=== PATIENT | female | born 2000 | race Caucasian/White ===

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

== ENCOUNTER 2019-01-09 20:47 | Emergency (ER) | payer OTHER ==
[~2019-01-09] VITALS: Ht 172.7 cm; Wt 61.2 kg
[2019-01-09 21:41] LABS: CLARITY,URINE SL CLOUDY; COLOR,URINE DARK YELLOW; GLUCOSE, URINE (UA) NEGATIVE (NEGATIVE); KETONES,URINE TRACE (NEGATIVE); NITRITE,URINE NEGATIVE (NEGATIVE); PROTEIN,URINE TRACE (NEGATIVE)
[2019-01-09 21:42] LABS: BACTERIA,URINE NEGATIVE /HPF; LEUKOCYTE ESTERASE ,URINE NEGATIVE (NEGATIVE); RBC,URINE >100 /HPF; UROBILINOGEN,URINE 0.2 MG/DL (NORMAL)
[2019-01-09 22:10] LABS: BILIRUBIN,URINE 1+ (NEGATIVE)
--- NOTE | 2019-01-09 23:03 | ED GU-Female ---
General Chief Complaint: PHOTO RETOUCHER Stated Complaint: ABD PAIN, IRREGULAR PERIOD, CLOTTING, EXC BLEEDING Nursing Triage Note: PT AMBULATE TO - WITH C/O PAINFULL INTERMITENT VAGINAL BLEEDING STARTING TWO WEEKS AGO. PT STATES SHE HAS NOT SEEN AN OBG-YN. PT STATES SHE IS BLEEDING AND PASSING LOTS OF CLOTS. Source: patient History of Present Illness Date Seen by Provider: Jan 09, 2019 Time Seen by Provider: 23:03 Initial Comments 18-year-old female presenting with complaints of irregular and painful vaginal bleeding. She states that this is been going on for the last 2 weeks. She has been very active and practice and sports for the last 3-4 weeks with softball. She has not had difficulty with her periods like this before. She is here from [place] for school. Her primary doctor is back in [place]. She denies any fever or chills. She has not had unprotected sex. She is not taking any control. She denies having any irregular menstrual cycles in the past. She reports that usually her periods are usually very regular for her. She had talked with her mom and family and no family members have hx of irregular painful periods. Allergies and Home Medications Allergies Coded Allergies: amoxicillin (Verified Allergy, Severe, RASH, 07/26/18) Home Medications Norgestimate-Ethinyl Estradiol 1 Each Tablet, 1 EACH PO DAILY Prescribed by: KYLIE GELLER on 01/10/19 0034 Patient Home Medication List Home Medication List Reviewed: Yes Review of Systems Review of Systems Constitutional: No chills; dizziness (occasional); No fever EENTM: no symptoms reported Respiratory: no symptoms reported Cardiovascular: no symptoms reported Gastrointestinal: no symptoms reported Genitourinary: see HPI Musculoskeletal: no symptoms reported Skin: no symptoms reported Psychiatric/Neurological: No Symptoms Reported Past Hljudem-Myqixw-Jrrgwx Hx Patient Social History Alcohol Use: Denies Use Recreational Drug Use: No Smoking Status: Never a Smoker 2nd Hand Smoke Exposure: No Recent Foreign Travel: No Contact w/Someone Who Travel: No Recent Infectious Disease Expo: No Recent Hopitalizations: No Physical Abuse: No Sexual Abuse: No Mistreated: No Fear: No Immunizations Up To Date Tetanus Booster (TDap): Unknown Seasonal Allergies Seasonal Allergies: No Past Medical History Surgeries: No Respiratory: No Cardiac: No Neurological: No Female Reproductive Disorders: Denies Sexually Transmitted Disease: No Genitourinary: No Gastrointestinal: No Musculoskeletal: No Endocrine: No HEENT: No Cancer: No Psychosocial: No Integumentary: No Blood Disorders: No Physical Exam Vital Signs Vital Signs - First Documented 01/09/19 01/10/19 21:15 00:42 Temp 99.9 Pulse 107 Resp 18 B/P (MAP) 124/72 Pulse Ox 98 O2 Delivery Room Air Capillary Refill : Height, Weight, BMI Height: 5'8.00" Weight: 135lbs. oz. 61.028595ak; 14.06 BMI Method:Stated General Appearance: WD/WN, no apparent distress HEENT: PERRL/EOMI, normal ENT inspection, pharynx normal Neck: non-tender, full range of motion, supple, normal inspection Cardiovascular: normal peripheral pulses, regular rate, rhythm Respiratory: chest non-tender, lungs clear, normal breath sounds, no respiratory distress, no accessory muscle use Gastrointestinal: normal bowel sounds, non tender, soft, no pulsatile mass Back: normal inspection, no CVA tenderness, no vertebral tenderness Extremities: normal range of motion, non-tender, normal inspection, no pedal edema, no calf tenderness, normal capillary refill Neurologic/Psychiatric: alert, oriented x 3 Skin: normal color, warm/dry Procedures/Interventions Suture Size: 5-0 Progress/Results/Core Measures Suspected Sepsis SIRS Temperature:99.9 Pulse: Respiratory Rate: Laboratory Tests 01/09/19 23:28: White Blood Count 8.8 Blood Pressure / Mean: Laboratory Tests 01/09/19 23:28: Platelet Count 255 Results/Orders Lab Results Laboratory Tests Test 01/09/19 21:00 01/09/19 23:28 Range/Units Urine Color DARK YELLOW Urine Clarity SL CLOUDY Urine pH 6.0 5-9 Urine Specific [place] >=1.030 1.016-1.022 Urine Protein TRACE H NEGATIVE Urine Glucose (UA) NEGATIVE NEGATIVE Urine Ketones TRACE H NEGATIVE Urine Nitrite NEGATIVE NEGATIVE Urine Bilirubin 1+ H NEGATIVE Urine Urobilinogen 0.2 NORMAL MG/DL Urine Leukocyte Esterase NEGATIVE NEGATIVE Urine RBC (Auto) 3+ H NEGATIVE Urine RBC >100 H /HPF Urine WBC 2-5 /HPF Urine Squamous Epithelial Cells 5-10 /HPF Urine Crystals NONE /LPF Urine Bacteria NEGATIVE /HPF Urine Casts NONE /LPF Urine Mucus MODERATE H /LPF Urine Culture Indicated NO Urine Test NEGATIVE NEGATIVE White Blood Count 8.8 4.3-11.0 10^3/uL Red Blood Count 4.43 4.35-5.85 10^6/uL Hemoglobin 13.3 11.5-16.0 G/DL Hematocrit 39 35-52 % Mean Corpuscular Volume 89 80-99 FL Mean Corpuscular Hemoglobin 30 25-34 PG Mean Corpuscular Hemoglobin Concent 34 32-36 G/DL Red Cell Distribution Width 12.2 10.0-14.5 % Platelet Count 255 130-400 10^3/uL Mean Platelet Volume 10.9 H 7.4-10.4 FL Neutrophils (%) (Auto) 63 42-75 % Lymphocytes (%) (Auto) 24 12-44 % Monocytes (%) (Auto) 12 0-12 % Eosinophils (%) (Auto) 1 0-10 % Basophils (%) (Auto) 0 0-10 % Neutrophils # (Auto) 5.5 1.8-7.8 X 10^3 Lymphocytes # (Auto) 2.1 1.0-4.0 X 10^3 Monocytes # (Auto) 1.0 0.0-1.0 X 10^3 Eosinophils # (Auto) 0.0 0.0-0.3 10^3/uL Basophils # (Auto) 0.0 0.0-0.1 10^3/uL My Orders Orders - KYLIE GELLER MD Ua Culture If Indicated (01/09/19 21:11) Hcg,Qualitative Urine (01/09/19 21:11) Cbc With Automated Diff (01/09/19 23:21) Vital Signs/I&O 01/09/19 01/10/19 21:15 00:42 Temp 99.9 Pulse 107 97 Resp 18 16 B/P (MAP) 124/72 Pulse Ox 98 100 O2 Delivery Room Air Capillary Refill : Progress Note #1: Progress Note Urinalysis and urine test was obtained. The urine test was negative. The urinalysis showed blood but no infection. Since she reports a history of anemia Will obtain a CBC to evaluate her blood count. Progress Note #2: Progress Note CBC does not demonstrate any anemia or significant elevation of her white blood cell count. Counseled on results and advised to check back with Dr. Allen or gynecology about further testing as she may need hormone levels or further evaluation on why her periods are suddenly irregular and painful. This may be back to her hormone levels and the exercising and strenuous activity from sports but without additional testing its hard to say. Will initiate medication with the control pills to try and help stop the bleeding and regulate her cycle. Consults with Dr. Allen on treatment and he was in agreement with this. ECG Initial ECG Impression Date: Jan 10, 2019 Departure Impression Primary Impression: Irregular menstrual bleeding Disposition: HOME, SELF-CARE Condition: Stable Departure-Patient Inst. Decision time for Depature: 00:24 Referrals: NO,LOCAL PHYSICIAN (PCP) Primary Care Physician MARINE ALLEN DO Patient Instructions: IRREGULAR VAGINAL BLEEDING, Painful Periods Add. Discharge Instructions: Stay well hydrated and get plenty of rest Consider taking a multivitamin with iron to help your body replace any blood you are losing from heavy menstrual bleeding Check with clinic at [facility] or with [employer] to investigate your heavy painful irregular bleeding You could take the control pills to help with regulating your bleeding and getting it to slow down and stop All discharge instructions reviewed with patient and/or family. Voiced understanding. Scripts Norgestimate-Ethinyl Estradiol (Sprintec 28 Day Tablet) 1 Each Tablet 1 EACH PO DAILY for 28 Days, #28 TAB 0 Refills Prov: KYLIE GELLER MD 01/10/19 KYLIE GELLER MD Jan 09, 2019 23:03
[2019-01-09 23:36] LABS: BASOPHILS % (AUTO) 0 % (0-10); EOSINOPHILS % (AUTO) 1 % (0-10); HEMATOCRIT 39 % (35-52); HEMOGLOBIN 13.3 G/DL (11.5-16.0); LYMPHOCYTES # (AUTO) 2.1 X 10^3 (1.0-4.0); LYMPHOCYTES % (AUTO) 24 % (12-44); MEAN CORPUSCULAR HEMOGLOBIN 30 PG (25-34); MEAN CORPUSCULAR HGB CONC 34 G/DL (32-36); MEAN CORPUSCULAR VOLUME 89 FL (80-99); MEAN PLATELET VOLUME 10.9 FL (7.4-10.4); MONOCYTES % (AUTO) 12 % (0-12); NEUTROPHILS # (AUTO) 5.5 X 10^3 (1.8-7.8); NEUTROPHILS % (AUTO) 63 % (42-75); PLATELET COUNT 255 10^3/uL (130-400); RED CELL DISTRIBUTION WIDTH 12.2 % (10.0-14.5); WHITE BLOOD COUNT 8.8 10^3/uL (4.3-11.0)
[2019-01-10] MEDS ORDERED: NORG1TAB14 PO (00:34)
== END 2019-01-10 00:42 | disposition home or self-care (01) ==
LOC: EDUNIT# 20:47 → ER FS 20:50
DX: N93.9 Abnormal uterine and vaginal bleeding, unspecified (principal); Z88.1 Allergy status to other antibiotic agents
CPT/HCPCS: 36415; 81000; 84703; 85025

== ENCOUNTER 2019-04-18 09:45 | Outpatient (CLI) | payer OTHER ==
[~2019-04-18] VITALS: Ht 172 cm; Wt 63.6 kg
[~2019-04-18 09:45] MED LIST: NORG1TAB14 PO
[2019-04-22] MEDS ORDERED: HYDR-4226 PO (09:24)
[2019-04-22] MEDS ORDERED: IBUP-1773 PO (09:24)
== END 2019-04-18 09:54 ==
LOC: PREOP 09:45
PROVIDERS: ATTEND Obstetrics & Gynecology
DX: Z01.818 Encounter for other preprocedural examination (principal)

== ENCOUNTER 2020-07-20 14:44 | Emergency (ER) | payer OTHER ==
[~2020-07-20] VITALS: Ht 170.2 cm; Wt 59.0 kg
[~2020-07-20 14:44] MED LIST changes: +HYDR-4226 PO; +IBUP-1773 PO
[2020-07-20 15:07] VITALS: BP_SYST 130; BP_SYST 133; BP_SYST 139; BP_DIAS 69; BP_DIAS 70; BP_DIAS 74
[2020-07-20] MEDS ORDERED: KETOROLAC 30 MG/ML VIAL IVP STA (15:09)
[2020-07-20] MEDS ORDERED: NS IV 1000 ML 1,000 ML IV STA (15:09)
[2020-07-20] MEDS ORDERED: ONDANSETRON 4 MG/2 ML (SDV) Z0FRAN IVP STA (15:09)
[2020-07-20 15:14] LABS: HEMATOCRIT 41 % (35-52); HEMOGLOBIN 13.9 G/DL (11.5-16.0); MEAN CORPUSCULAR HEMOGLOBIN 30 PG (25-34); MEAN CORPUSCULAR HGB CONC 34 G/DL (32-36); MEAN CORPUSCULAR VOLUME 88 FL (80-99); NEUTROPHILS % (AUTO) 54 % (42-75); PLATELET COUNT 190 10^3/uL (130-400); WHITE BLOOD COUNT 4.4 10^3/uL (4.3-11.0)
[2020-07-20 15:15] LABS: BASOPHILS % (AUTO) 0 % (0-10); EOSINOPHILS % (AUTO) 1 % (0-10); LYMPHOCYTES % (AUTO) 27 % (12-44); MONOCYTES % (AUTO) 18 % (0-12)
[2020-07-20 15:16] LABS: EOSINOPHILS # (AUTO) 0.1 10^3/uL (0.0-0.3); LYMPHOCYTES # (AUTO) 1.2 X 10^3 (1.0-4.0); MONOCYTES # (AUTO) 0.8 X 10^3 (0.0-1.0); NEUTROPHILS # (AUTO) 2.3 X 10^3 (1.8-7.8)
--- NOTE | 2020-07-20 15:16 | ED GI ---
General Chief Complaint: Abdominal/GI Problems Stated Complaint: DIARRHEA; VOMITING; NAUSEA; LRQ PAIN Source of Information: Patient History of Present Illness Date Seen by Provider: Jul 20, 2020 Time Seen by Provider: 14:46 Initial Comments 20-year-old female presenting with over 5 days of nausea, vomiting, diarrhea. She states that she is having right lower quadrant abdominal pain. She reports having increased diarrhea multiple times a day. She has no fever or chills. She denies any burning or pain with urination. She has no ill contacts as far she knows. She last tried to eat or drink around noon and immediately came back up on her and she vomited. She feels mild lightheadedness and dizziness when she stands up. Allergies and Home Medications Allergies Coded Allergies: Penicillins (Verified Allergy, Mild, RASH, 04/18/19) Home Medications Dicyclomine HCl 10 Mg Capsule, 10 MG PO QID PRN for NAUSEA/VOMITING Prescribed by: KYLIE GELLER on 07/20/20 1627 Hydrocodone/Acetaminophen 1 Each Tablet, 1-2 TAB PO Q6H Prescribed by: STEVEN JACQUES on 04/22/19 0924 Ibuprofen 600 Mg Tablet, 600 MG PO Q6H Prescribed by: STEVEN JACQUES on 04/22/19 0924 Norgestimate-Ethinyl Estradiol 1 Each Tablet, 1 EACH PO DAILY Prescribed by: KYLIE GELLER on 01/10/19 0034 Ondansetron 4 Mg Tab.rapdis, 4 MG PO Q6H PRN for NAUSEA/VOMITING Prescribed by: KYLIE GELLER on 07/20/20 1627 Patient Home Medication List Home Medication List Reviewed: Yes Review of Systems Review of Systems Constitutional: No chills; dizziness (mild with standing); No fever EENTM: No Symptoms Reported Respiratory: No Symptoms Reported Cardiovascular: No Symptoms Reported Gastrointestinal: See HPI, Abdominal Pain (cramping, worse in RLQ), Diarrhea, Nausea, Vomiting Genitourinary: See HPI Musculoskeletal: no symptoms reported Skin: No rash Psychiatric/Neurological: No Symptoms Reported Endocrine: No Symptoms Reported Hematologic/Lymphatic: No Symptoms Reported Past Aeuoewn-Hfbyxu-Bpkmrt Hx Past Med/Social Hx: Reviewed Nursing Past Med/Soc Hx Patient Social History Alcohol Use: Denies Use Type Used: Smokeless Tobacco 2nd Hand Smoke Exposure: No Recent Hopitalizations: Yes (CPP JAN 2019) Immunizations Up To Date Tetanus Booster (TDap): Unknown PED Vaccines UTD: No Seasonal Allergies Seasonal Allergies: Yes Past Medical History Surgeries: No Respiratory: No Cardiac: No Neurological: No Female Reproductive Disorders: Menstrual Problems, Ovarian Cyst Sexually Transmitted Disease: No Genitourinary: No Gastrointestinal: No Musculoskeletal: No Endocrine: No HEENT: Yes (GLASSES/CONTACTS) Loss of Vision: Denies Hearing Impairment: Denies Cancer: No Psychosocial: No Integumentary: No Blood Disorders: Yes (ANEMIA) Adverse Reaction/Blood Tranf: No (N/A) Physical Exam Vital Signs Vital Signs - First Documented 07/20/20 14:46 Temp 37.3 Pulse 99 Resp 18 B/P (MAP) 125/79 (94) Pulse Ox 100 O2 Delivery Room Air Capillary Refill : Height/Weight/BMI Height: 5'8.00" Weight: 135lbs. oz. 61.462062ex; 21.49 BMI Method:Stated General Appearance: WD/WN, no apparent distress HEENT: PERRL/EOMI Neck: non-tender, full range of motion, supple, normal inspection Respiratory: chest non-tender, lungs clear, normal breath sounds, no respiratory distress, no accessory muscle use Cardiovascular: normal peripheral pulses, regular rate, rhythm Gastrointestinal: soft, no pulsatile mass, abnormal bowel sounds (hyperactive); No guarding, No rebound; tenderness (RLQ) Rectal: deferred Extremities: normal range of motion, non-tender, normal capillary refill Back: no CVA tenderness Neurologic/Psychiatric: stave planer tender II-XII nml as tested, alert, oriented x 3 Skin: normal color, warm/dry Images 1 - RLQ abdominal pain with palpation. No guarding or rebound Procedures/Interventions Suture Size: 5-0 Progress/Results/Core Measures Results/Orders Lab Results Laboratory Tests Test 07/20/20 14:52 07/20/20 15:02 Range/Units Urine Color YELLOW Urine Clarity CLEAR Urine pH 6.5 5-9 Urine Specific [place] 1.025 H 1.016-1.022 Urine Protein NEGATIVE NEGATIVE Urine Glucose (UA) NEGATIVE NEGATIVE Urine Ketones NEGATIVE NEGATIVE Urine Nitrite NEGATIVE NEGATIVE Urine Bilirubin NEGATIVE NEGATIVE Urine Urobilinogen 0.2 < = 1.0 MG/DL Urine Leukocyte Esterase NEGATIVE NEGATIVE Urine RBC (Auto) NEGATIVE NEGATIVE Urine RBC NONE /HPF Urine WBC 0-2 /HPF Urine Squamous Epithelial Cells 5-10 /HPF Urine Crystals PRESENT H /LPF Urine Amorphous Sediment FEW [place] URATES H /LPF Urine Bacteria FEW H /HPF Urine Casts NONE /LPF Urine Mucus LARGE H /LPF Urine Culture Indicated NO White Blood Count 4.4 4.3-11.0 10^3/uL Red Blood Count 4.62 4.35-5.85 10^6/uL Hemoglobin 13.9 11.5-16.0 G/DL Hematocrit 41 35-52 % Mean Corpuscular Volume 88 80-99 FL Mean Corpuscular Hemoglobin 30 25-34 PG Mean Corpuscular Hemoglobin Concent 34 32-36 G/DL Red Cell Distribution Width 12.7 10.0-14.5 % Platelet Count 190 130-400 10^3/uL Mean Platelet Volume 11.0 H 7.4-10.4 FL Neutrophils (%) (Auto) 54 42-75 % Lymphocytes (%) (Auto) 27 12-44 % Monocytes (%) (Auto) 18 H 0-12 % Eosinophils (%) (Auto) 1 0-10 % Basophils (%) (Auto) 0 0-10 % Neutrophils # (Auto) 2.3 1.8-7.8 X 10^3 Lymphocytes # (Auto) 1.2 1.0-4.0 X 10^3 Monocytes # (Auto) 0.8 0.0-1.0 X 10^3 Eosinophils # (Auto) 0.1 0.0-0.3 10^3/uL Basophils # (Auto) 0.0 0.0-0.1 10^3/uL Neutrophils % (Manual) 46 % Lymphocytes % (Manual) 19 % Monocytes % (Manual) 17 % Eosinophils % (Manual) 2 % Band Neutrophils 11 % Atypical Lymphocytes 5 % Blood Morphology Comment NORMAL Sodium Level 138 135-145 MMOL/L Potassium Level 3.9 3.6-5.0 MMOL/L Chloride Level 104 98-107 MMOL/L Carbon Dioxide Level 23 21-32 MMOL/L Anion Gap 11 5-14 MMOL/L Blood Urea Nitrogen 11 7-18 MG/DL Creatinine 0.91 0.60-1.30 MG/DL Estimat Glomerular Filtration Rate > 60 BUN/Creatinine Ratio 12 Glucose Level 97 70-105 MG/DL Calcium Level 8.9 8.5-10.1 MG/DL Corrected Calcium 8.5-10.1 MG/DL Total Bilirubin 0.4 0.1-1.0 MG/DL Aspartate Amino Transf (AST/SGOT) 23 5-34 U/L Alanine Aminotransferase (ALT/SGPT) 19 0-55 U/L Alkaline Phosphatase 75 40-136 U/L Total Protein 7.6 6.4-8.2 GM/DL Albumin 4.7 H 3.2-4.5 GM/DL Lipase 22 8-78 U/L My Orders Orders - KYLIE GELLER MD Comprehensive Metabolic Panel (07/20/20 14:52) Lipase (07/20/20:52) Ua Culture If Indicated (07/20/20:52) Ed Iv/Invasive Line Start (07/20/20:52) Cbc With Automated Diff (07/20/20:) Urine Bedside (07/20/20:52) Orthostatic Vital Signs (Adult (07/20/20 15:08) Ns Iv 1000 Ml (Sodium Chloride 0.9%) (07/20/20 15:09) Ondansetron Injection (Zofran Injectio (07/20/20 15:09) Ketorolac Injection (Toradol Injection) (07/20/20 15:09) Manual Differential (07/20/20 15:02) Ct Abd/Pelv W (Appendicitis) (07/20/20 15:08) Iohexol Injection (Omnipaque 350 Mg/Ml 1 (07/20/20 15:45) Received Contrast (Hold Metformin- Contr (07/20/20 15:45) Sodium Chloride Flush (Catheter Flush Sy (07/20/20 15:45) Ns (Ivpb) (Sodium Chloride 0.9% Ivpb Bag (07/20/20 15:45) Dicyclomine Injection (Bentyl Injection) (07/20/20 16:23) Prochlorperazine Injection (Compazine In (07/20/20 16:23) Pantoprazole Injection (Protonix Injecti (07/20/20 16:23) Medications Given in ED Current Medications Medications Dose Ordered Sig/Brittanie Route Start Time Stop Time Status Last Admin Dose Admin Iohexol 100 ml ONCE ONCE IV 07/20/20 15:45 07/20/20 15:46 DC 07/20/20 15:46 100 ML Sodium Chloride 10 ml NEEDED PRN IV 07/20/20 15:45 07/20/20 17:47 DC 07/20/20 15:46 10 ML Sodium Chloride 100 ml ONCE ONCE IV 07/20/20 15:45 07/20/20 15:46 DC 07/20/20 15:46 80 ML Vital Signs/I&O 07/20/20 07/20/20 07/20/20 14:46 15:07 17:00 Temp 37.3 Pulse 99 92 78 94 108 Resp 18 18 B/P (MAP) 125/79 (94) 130/74 (92) 139/69 133/70 (91) 139/69 (92) Pulse Ox 100 100 O2 Delivery Room Air Room Air Progress Progress Note #1: Progress Note Obtain orthostatic vital signs since she reports having nausea, vomiting, diarrhea for over 5 days. Give IV fluids for hydration, Toradol for pain, Zofran for nausea. Check urine test and UA. The orthostatic vital signs showed mild elevation of her heart rate as she was standing. Her blood pressure remained stable. She did report some mild dizziness and lightheadedness with standing. Bedside urine test was negative. Differential diagnosis would include gastroenteritis, abdominal cramping, ovarian cyst, colitis, diverticulitis, appendicitis, cholecystitis, UTI, kidney stone. Progress Note #2: Progress Note CBC and chemistry were negative for any acute significant normality. Her urinalysis had elevated specific gravity 1.025 with some crystals and mucus but no nitrites leukocyte esterase or signs of infection. The symptoms seem to be improved with treatment in the ED. Progress Note #3: Progress Note CT scan does not show any acute significant abnormality. The appendix is normal. We will treat patient symptomatically and see if she wants to do outpatient Covid swab. However the treatment would still remain the same of sy mptomatic treatment. Diagnostic Imaging Diagonstic Imaging: CT Plain Films/CT/US/NM/MRI: abdomen, pelvis Comments NAME: CHRISTOS BAUTISTA MED REC#: [id number] PT STATUS: REG ER : 2000 PHYSICIAN: KYLIE GELLER MD ADMIT DATE: 07/20/20/ER FS Draft Date of Exam:07/20/20 CT ABD/PELV W (APPENDICITIS) PROCEDURE: CT abdomen and pelvis with contrast, rule out appendicitis. TECHNIQUE: Multiple contiguous axial images were obtained through the abdomen and pelvis after the administration of intravenous contrast. All CT scans use one or more of the following dose optimizing techniques: automated exposure control, MA and/or KvP adjustment based on patient size and exam type or iterative reconstruction. INDICATION: Nausea and vomiting for 5 days. FINDINGS: The lung bases are clear. The liver and gallbladder are unremarkable. The pancreas and spleen are unremarkable. There is no adrenal mass. The kidneys are unremarkable. The aorta is nonaneurysmal. The appendix is visualized in the right lower quadrant and does not appear to be appreciably thick-walled. No periappendiceal inflammation is identified. The bowel loops are of normal caliber. There is no free fluid or fluid collection identified. The uterus and bladder are unremarkable. The bony structures are nonacute. IMPRESSION: Unremarkable CT abdomen and pelvis with contrast. There is no evidence of acute appendicitis. Dictated on workstation # [id number] Dict: 07/20/20 1555 Trans: 07/20/20 1558 [id number] Interpreted by: JHONY MORTON MD Electronically signed by: Departure Impression Primary Impression: Nausea, vomiting and diarrhea Additional Impressions: Abdominal cramping Viral gastroenteritis Disposition: HOME, SELF-CARE Condition: Stable Departure-Patient Inst. Decision time for Depature: 16:27 Referrals: NO,LOCAL PHYSICIAN (PCP) Primary Care Physician Patient Instructions: Abdominal Pain, Adult ED, [place] Diet, CLEAR LIQUID DIET ADULT/CHILD, Diarrhea, Adult ED, Nausea and Vomiting, Adult ED Add. Discharge Instructions: Stay well hydrated and drink electrolyte drinks and water to help replace salts and electrolytes you might lose with vomiting and diarrhea. Use the nausea medicine to help keep your stomach settled. Dicyclomine for abdominal cramping and pain. If your symptoms worsen or are not improving in next few days you could check with clinic for further evaluation. All discharge instructions reviewed with patient and/or family. Voiced understanding. Scripts Ondansetron (Ondansetron Odt) 4 Mg Tab.rapdis 4 MG PO Q6H PRN for NAUSEA/VOMITING for 5 Days, #20 TAB 0 Refills Prov: KYLIE GELLER MD 07/20/20 Dicyclomine HCl (Dicyclomine HCl) 10 Mg Capsule 10 MG PO QID PRN for NAUSEA/VOMITING for 5 Days, #20 CAP 0 Refills Prov: KYLIE GELLER MD 07/20/20 Work/School Note: School/Childcare Release Date Seen in the Emergency Department: Jul 20, 2020 Time Dismissed from Emergency Department: 16:40 Return to School: Jul 23, 2020 Restrictions: No Restrictions KYLIE GELLER MD Jul 20, 2020 15:16
[2020-07-20 15:38] LABS: BUN/CREATININE RATIO 12; CARBON DIOXIDE 23 MMOL/L (21-32); CHLORIDE 104 MMOL/L (98-107); CREATININE SERUM 0.91 MG/DL (0.60-1.30); GFR ESTIMATED > 60; GLUCOSE 97 MG/DL (70-105); POTASSIUM 3.9 MMOL/L (3.6-5.0); SODIUM 138 MMOL/L (135-145)
[2020-07-20 15:39] LABS: CLARITY,URINE CLEAR; COLOR,URINE YELLOW; PH,URINE 6.5 (5-9)
[2020-07-20 15:39] LABS: ALANINE AMINOTRANSFERASE 19 U/L (0-55); ALBUMIN 4.7 GM/DL (3.2-4.5); ALKALINE PHOSPHATASE 75 U/L (40-136); BILIRUBIN,TOTAL 0.4 MG/DL (0.1-1.0); CALCIUM 8.9 MG/DL (8.5-10.1); LIPASE 22 U/L (8-78); TOTAL PROTEIN 7.6 GM/DL (6.4-8.2)
[2020-07-20 15:40] LABS: AMORPHOUS SEDIMENT,UR FEW AMOR URATES /LPF; BACTERIA,URINE FEW /HPF; BILIRUBIN,URINE NEGATIVE (NEGATIVE); GLUCOSE, URINE (UA) NEGATIVE (NEGATIVE); KETONES,URINE NEGATIVE (NEGATIVE); LEUKOCYTE ESTERASE ,URINE NEGATIVE (NEGATIVE); NITRITE,URINE NEGATIVE (NEGATIVE); PROTEIN,URINE NEGATIVE (NEGATIVE); WBC,URINE 0-2 /HPF
[2020-07-20 15:41] LABS: ATYPICAL LYMPHOCYTES 5 %; BAND NEUTROPHILS 11 %; EOSINOPHILS % (MANUAL) 2 %; LYMPHOCYTES % (MANUAL) 19 %; MONOCYTES % (MANUAL) 17 %; NEUTROPHILS % (MANUAL) 46 %; RBC MORPH NORMAL
[2020-07-20] MEDS ORDERED: HOLD METFORMIN - RECEIVED CONTRAST 20 ML VIAL IV SCH (15:45)
[2020-07-20] MEDS ORDERED: CATHETER FLUSH 10 ML SYR IV PRN (15:45)
[2020-07-20] MEDS ORDERED: NS 100 ML (IVPB) BAG IV ONE (15:45)
[2020-07-20] MEDS ORDERED: IOHEXOL 350 MG/ML 100 ML (OMNIPAQUE 350) VIAL IV ONE (15:45)
--- NOTE | 2020-07-20 15:58 | Diagnostic Imaging Report ---
PROCEDURE: CT abdomen and pelvis with contrast, rule out appendicitis. TECHNIQUE: Multiple contiguous axial images were obtained through the abdomen and pelvis after the administration of intravenous contrast. All CT scans use one or more of the following dose optimizing techniques: automated exposure control, MA and/or KvP adjustment based on patient size and exam type or iterative reconstruction. INDICATION: Nausea and vomiting for 5 days. FINDINGS: The lung bases are clear. The liver and gallbladder are unremarkable. The pancreas and spleen are unremarkable. There is no adrenal mass. The kidneys are unremarkable. The aorta is nonaneurysmal. The appendix is visualized in the right lower quadrant and does not appear to be appreciably thick-walled. No periappendiceal inflammation is identified. The bowel loops are of normal caliber. There is no free fluid or fluid collection identified. The uterus and bladder are unremarkable. The bony structures are nonacute. IMPRESSION: Unremarkable CT abdomen and pelvis with contrast. There is no evidence of acute appendicitis. Dictated by: Dictated on workstation # [id number]
[2020-07-20] MEDS ORDERED: DICYCLOMINE 10 MG/ML (BENTYL) 2 ML AMP IM STA (16:23)
[2020-07-20] MEDS ORDERED: PROCHLORPERAZINE 10 MG/2ML INJ (COMPAZINE) IV STA (16:23)
[2020-07-20] MEDS ORDERED: PANTOPRAZOLE 40 MG (PROTONIX) VIAL IV STA (16:23)
[2020-07-20] MEDS ORDERED: DICY10CA12 PO (16:27)
[2020-07-20] MEDS ORDERED: ONDA4TAB11 PO (16:27)
[2020-07-20 17:00] VITALS: BP 139/69
== END 2020-07-20 17:00 | disposition home or self-care (01) ==
LOC: EDUNIT# 14:44 → ER FS 14:46
DX: R10.31 Right lower quadrant pain (principal); A08.4 Viral intestinal infection, unspecified; Z88.0 Allergy status to penicillin
CPT/HCPCS: 36415; 74177; 80053; 81000; 83690; 84703; 85007; 85027